=== PATIENT | male | born 1970 | race African-American/Black ===

== ENCOUNTER 2019-11-16 04:23 | Day surgery (SDC) | payer BC, OTHER ==
[2019-11-14 19:40] VITALS: BMI 21.9
[2019-11-16] MEDS ORDERED: PROPOFOL 20 ML ONE (12:01)
[2019-11-16] MEDS ORDERED: ceFAZolin SODIUM 1 GM VIAL ONE (12:01)
[2019-11-16] MEDS ORDERED: DEXAMETHASONE SOD PHOSPHATE 4 MG/1 ML VIAL ONE (12:01)
[2019-11-16] MEDS ORDERED: ROCURONIUM BROMIDE 50 MG/5 ML SYRINGE ONE (12:02)
[2019-11-16] MEDS ORDERED: MIDAZOLAM HCL 2 MG/2 ML SINGLE DOSE VIAL ONE ×4 (12:02→12:21)
[2019-11-16] MEDS ORDERED: DEXAMETHASONE SOD PHOSPHATE/PF 10 MG/ML SDV ONE (12:19)
[2019-11-16] MEDS ORDERED: ONDANSETRON 4 MG/2 ML VIAL IVPUSH PRN (12:30)
[2019-11-16] MEDS ORDERED: LACTATED RINGERS SOLUTION 1,000 ML IV SCH (12:30)
[2019-11-16] MEDS ORDERED: oxyCODONE HCL 5 MG TABLET PO PRN ×2 (12:30)
--- NOTE | 2019-11-16 12:58 | HP ---
History & Physical Update - History History: No Change - Physical Physical: No Change - Assessment Assessment: No Change - Plan Plan: No Change
[2019-11-16] MEDS ORDERED: ceFAZolin SODIUM 1 GM VIAL IVPB ONE (13:37)
[2019-11-16] MEDS ORDERED: NEOSTIGMINE METHYLSULFATE 0.5 MG/1 ML - 10 ML MDV ONE (13:44)
[2019-11-16] MEDS ORDERED: GLYCOPYRROLATE 0.2 MG/1 ML VIAL ONE ×2 (13:44)
[2019-11-16] MEDS ORDERED: KETOROLAC TROMETHAMINE 30 MG/1 ML VIAL ONE (13:45)
--- NOTE | 2019-11-16 14:51 | OP ---
Operative Note - Note: Operative Date: 11/16/19 Pre-Operative Diagnosis: Left inguinal hernia Operation: Laproscopic Left inguinal hernia repair with mesh Post-Operative Diagnosis: Same as Pre-op Surgeon: Kanu Thomas Pre Owned Sales Consultant: Colin Leyva Anesthesiologist/MOTOR TUNE UP SPECIALIST: Shobha Spivey Anesthesia: General Estimated Blood Loss (mls): 5 Operative Report Dictated: Yes
--- NOTE | 2019-11-16 14:52 | SURG ---
Surgery Territory Supervisor Note Territory Supervisor: Colin Leyva PA-C Date of Service: 11/16/19 Diagnosis: Left inguinal hernia Procedure: Laproscopic left inguinal hernia repair I was present for the entirety of the operative procedure. For further detail, please refer to operative report. Visit type - Case Type Case Type: Scheduled - Emergency Emergency Visit: No - New patient This patient is new to me today: Yes Date on this admission: 11/16/19 - Critical Care Critical Care patient: No
[2019-11-16 17:41] VITALS: TEMP 98.4
[2019-11-16 18:13] VITALS: BP 130/80; PULSE 70
--- NOTE | 2019-11-17 08:18 | OP ---
DATE OF OPERATION: 11/16/2019 PREOPERATIVE DIAGNOSIS: Left inguinal hernia. POSTOPERATIVE DIAGNOSIS: Left direct inguinal hernia. SURGEON: Kanu Shannon MD AUDIENCE DEVELOPMENT MANAGER: DULCE Paniagua PROCEDURE: Laparoscopic left inguinal hernia repair with mesh. SPECIMENS: None. BLEEDING: Minimal. COMPLICATIONS: Patient tolerated procedure well. INDICATION: This is a 49-year-old male who presents with left groin pain. On physical exam it was consistent with a left inguinal hernia. Risks and benefits were discussed. Options of therapy were given and the patient agreed to proceed with laparoscopic surgery. Risks and benefits including potential for chronic pain, mesh complications, bleeding, infection were all discussed with the patient. PROCEDURE IN DETAIL: In the operating room he was placed in the supine position. He underwent induction of general anesthesia after a TAP block had been administered. He was prepped and draped in usual sterile fashion. The procedure was begun with periumbilical incision performed with a scalpel and carried through the subcutaneous tissues until the fascia was exposed. The anterior fascia was then incised along the rectus border and the rectus retracted laterally and the preperitoneal space was accessed. A peanut was used to then perform some blunt dissection and then a balloon port was introduced into this and insufflation to a pressure of 15 mmHg. Blunt dissection was then performed with the camera to further develop the port space. Two 5-mm ports were placed, one in the suprapubic position, one half way between the umbilicus and the pubic symphysis. The patient was positioned in the reverse Trendelenburg position. The dissection was begun with the medial dissection exposing the Julio's ligament using some blunt dissection with cautery. The lateral dissection was then done to retract the peritoneum and expose the iliopubic tract. The cord structures were then dissected. There was no evidence of an indirect sac, but the peritoneum was then dissected off the cord structures completely exposing the testicular vessels as well as the vas deferens. The defect was clearly a direct defect which was completely reduced and the defect was completely visualized, and upon completion of dissection a 10 x 15 mesh was then introduced, a ProGrip mesh left side anatomical, which was then positioned to cover both the direct, indirect and femoral spaces. With the mesh in good position the ports were then removed under direct vision. The fascial at the periumbilical incision was closed with 0 Vicryl sutures. The skin was closed with 4-0 Monocryl at the port sites. Dermabond was applied and the patient was returned to the recovery room awake and alert in stable condition. He tolerated the procedure well. KANU SHANNON M.D. [id number]
== END 2019-11-16 18:21 | disposition home or self-care (01) ==
LOC: JASU-SURG 04:23 → MERGE 13:00 → JASU-SURG 18:21
PROVIDERS: ATTEND Surgery
PROC: 0YU64JZ Supplement Left Inguinal Region with Synthetic Substitute, Percutaneous Endoscopic Approach (ICD-10-PCS; principal; 2019-11-16 13:00)
DX: K40.90 Unilateral inguinal hernia, without obstruction or gangrene, not specified as recurrent (principal)
CPT/HCPCS: 94760